=== PATIENT | female | born 2000 | race Caucasian/White ===

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

== ENCOUNTER → 2018-02-24 10:04 | Outpatient (CLI) | payer BC, SELFPAY ==
--- NOTE | 2018-02-24 10:18 | XR_ITS ---
XR hand LT min 3V HISTORY: ITS.REASON: LT HAND PAIN ORDERING PHYSICIAN: Foster Bautista MD PATIENT AGE: 18 years COMPARISON: None FINDINGS: No fracture or dislocation. No lytic or blastic change. There is normal mineralization.. The joint spaces are well-preserved. No significant degenerative/arthritic changes. No erosive changes evident.. IMPRESSION: Negative, no acute finding
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
--- NOTE | 2018-02-24 10:18 | XR_ITS ---
XR knee LT 3V HISTORY: ITS.REASON: LT KNEE PAIN ORDERING PHYSICIAN: Foster Bautista MD PATIENT AGE: 18 years COMPARISON: None FINDINGS: No fracture or dislocation. No lytic or blastic change. Normal mineralization. No significant arthritic changes evident. No other significant findings IMPRESSION: Negative Knee
== END ==
PROVIDERS: PCP Internal Medicine Adolescent Medicine; Visit Provider Internal Medicine Adolescent Medicine
DX: M79.642 Pain in left hand (principal); M25.512 Pain in left shoulder; M25.562 Pain in left knee
CPT/HCPCS: 73030; 73130; 73562

== ENCOUNTER → 2018-12-20 16:05 | Outpatient (CLI) | payer BC, SELFPAY ==
[2018-12-20 16:53] LABS: Basophils % 0.6 % (0.1-2.0); Eosinophils # 0.1 K/mm3 (0.0-0.4); Eosinophils % 0.9 % (0.1-12.0); Hematocrit 42.2 % (37.0-47.0); Lymphocytes % 33.2 % (10-50); Mean Corpuscular HGB Conc 33.1 g/dL (31.8-35.4); Mean Corpuscular Volume 87.6 fl (81-99); Mean Platelet Volume 6.9 fl (7.4-10.4); Monocytes # 0.4 K/mm3 (0.1-1.0); Monocytes % 5.8 % (1.7-9.3); Neutrophils # 3.6 K/mm3 (1.8-7.8); Neutrophils % 59.4 % (37.0-80.0); Platelet Count 353 K/mm3 (142-424); Red Blood Count 4.81 M/mm3 (4.20-5.40); Red Cell Distribution Width 12.6 % (11.5-17.5); White Blood Count 6.1 K/mm3 (4.5-13.0)
[2018-12-20 18:27] LABS: Amphetamine/Metha Screen,Urine Negative ng/mL (<1000); Barbiturates Screen,Urine Negative ng/mL (<200); Benzodiazepines Screen,Urine Negative ng/mL (<200); Cannabinoid Screen,Urine Negative ng/mL (<50); Cocaine Screen,Urine Negative ng/mL (<300); HCG,Quantitative 2114 mIU/mL; Methadone Screen,Urine Negative ng/mL (<300); Opiate Screen,Urine Negative ng/mL (<300); Phencyclidine Screen,Urine Negative ng/mL (<25); Thyroid Stimulating Hormone 1.57 uIU/ml (0.516-4.13)
[2018-12-22 07:15] LABS: HIV Screen 4th Generation wRfx Non Reactive (Non Reactive)
[2018-12-22 08:25] LABS: Hepatitis B Surface Antigen Negative (Negative); Rubella Antibodies, IgG 3.55 index (Immune >0.99)
[2018-12-22 14:09] LABS: Rapid Plasma Reagin Ab Titer Non Reactive (NonRea<1:1)
== END ==
PROVIDERS: Visit Provider Obstetrics & Gynecology
DX: Z34.90 Encounter for supervision of normal pregnancy, unspecified, unspecified trimester (principal)
CPT/HCPCS: 80305; 84443; 84702; 85025; 86592; 86703; 86762; 86850; 87340; G0432

== ENCOUNTER → 2018-12-23 12:17 | Outpatient (CLI) | payer BC, SELFPAY ==
[2018-12-23 14:52] LABS: HCG,Quantitative 354 mIU/mL
== END ==
PROVIDERS: Visit Provider Obstetrics & Gynecology
DX: Z34.90 Encounter for supervision of normal pregnancy, unspecified, unspecified trimester (principal)
CPT/HCPCS: 36415; 84702

== ENCOUNTER → 2019-01-03 13:10 | Outpatient (CLI) | payer BC, SELFPAY ==
[2019-01-03 14:51] LABS: HCG,Quantitative 69 mIU/mL
== END ==
PROVIDERS: Visit Provider Obstetrics & Gynecology
DX: O20.0 Threatened abortion (principal)
CPT/HCPCS: 36415; 84702; 86850

== ENCOUNTER → 2019-03-31 10:35 | Outpatient (CLI) | payer OTHER, SELFPAY ==
[2019-03-31 10:38] LABS: Microscopic, Urine URINE MICROSCOPIC (MICROSCOPIC)
[2019-03-31 11:06] LABS: Basophils % 0.4 % (0.1-2.0); Eosinophils # 0.1 K/mm3 (0.0-0.4); Eosinophils % 0.9 % (0.1-12.0); Hematocrit 45.2 % (37.0-47.0); Lymphocytes % 22.7 % (10-50); Mean Corpuscular HGB Conc 30.9 g/dL (31.8-35.4); Mean Corpuscular Hemoglobin 28.3 pg (27.0-31.2); Mean Corpuscular Volume 91.6 fl (81-99); Mean Platelet Volume 7.4 fl (7.4-10.4); Monocytes # 0.4 K/mm3 (0.1-1.0); Monocytes % 4.5 % (1.7-9.3); Neutrophils # 6.3 K/mm3 (1.8-7.8); Neutrophils % 71.4 % (37.0-80.0); Platelet Count 333 K/mm3 (142-424); Red Blood Count 4.93 M/mm3 (4.20-5.40); Red Cell Distribution Width 13.9 % (11.5-17.5); White Blood Count 8.9 K/mm3 (4.8-10.8)
[2019-03-31 12:07] LABS: Alanine Aminotransferase 19 U/L (12-78); Albumin Level 3.9 gm/dL (3.4-5.0); Albumin/Globulin Ratio 1.2 (1.1-1.8); Alkaline Phosphatase 105 U/L (46-116); Anion Gap 16.2 mEq/L (5-15); Aspartate Amino Transferase 10 U/L (15-37); Bilirubin,Total 0.4 mg/dL (0.2-1.0); Blood Urea Nitrogen 13 mg/dL (7-18); Calcium 9.7 mg/dL (8.5-10.1); Carbon Dioxide 24 mmol/L (21.0-32.0); Chloride 106 mmol/L (98-107); Estimated Glomerular Filt Rate 106 ml/min (>60); GFR (African American) 128 ML/MIN (>60); Globulin 3.3 gm/dl (1.3-3.2); Glucose 96 mg/dL (74-106); Potassium 4.2 mmoL/L (3.5-5.1); Sodium 142 mmol/L (136-145); Total Protein,Serum 7.2 gm/dL (6.4-8.2)
[2019-03-31 13:18] LABS: Appearance,Urine CLEAR (Clear); Bilirubin,Urine Negative (Negative); Blood, Urine Negative (Negative); Color,Urine YELLOW (Yellow); Glucose,Urine (UA) Negative (Negative); Ketones,Urine Negative (Negative); Leukocyte Esterase,Urine Negative (Negative); Nitrate,Urine Negative (Negative); Protein,Urine Negative (Negative); Specific Gravity, Urine 1.025 (1.005-1.030); Urobilinogen,Urine 0.2 EU/dl (0.2)
[2019-03-31 13:23] LABS: Bacteria,Urine Trace /lpf; Mucus,Urine Trace /lpf
[2019-04-01 09:41] LABS: HCG Qualitative, Serum Negative (Negative)
== END ==
PROVIDERS: Visit Provider Obstetrics & Gynecology
DX: Z01.818 Encounter for other preprocedural examination (principal); N87.9 Dysplasia of cervix uteri, unspecified
CPT/HCPCS: 36415; 80053; 81001; 84702; 84703; 85025

== ENCOUNTER → 2019-08-04 10:34 | Outpatient (CLI) | payer OTHER, SELFPAY ==
--- NOTE | 2019-08-04 10:39 | XR_ITS ---
PROCEDURE: XR CHEST 2V CLINICAL HISTORY: COUGH,SOB COMPARISON: No exams were available for comparison FINDINGS: The cardiomediastinal silhouette and pulmonary vascularity are within normal limits. The lungs are clear without infiltrates, suspicious nodules, or pleural effusions. There is evidence of old granulomatous disease IMPRESSION: No acute findings. Dictated by: Rob Balderas MD 08/04/2019 15:43 Electronically signed by Rob Balderas MD in [place] 08/04/2019 15:43
== END ==
PROVIDERS: PCP Nurse Practitioner Family; Visit Provider Nurse Practitioner Family
DX: R05 Cough (principal); R06.02 Shortness of breath
CPT/HCPCS: 71046

== ENCOUNTER 2019-12-13 08:00 | Outpatient (RCR) | payer BC, SELFPAY ==
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
== END 2019-12-13 08:05 | disposition home or self-care (01) ==
LOC: PT 08:00
PROVIDERS: Visit Provider Internal Medicine Adolescent Medicine
DX: M79.18 Myalgia, other site (principal)
CPT/HCPCS: 97010; 97014; 97035; 97110; 97140; 97163; G0283

== ENCOUNTER 2020-03-30 13:00 | Outpatient (RCR) | payer BC, SELFPAY ==
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
--- NOTE | 2020-03-20 10:44 | HMH.RHREAS ---
Rehab Reassessment Rehab OP Re-assessment Start: 03/20/20 09:42 Freq: Status: Active Protocol: Document 03/20/20 09:42 ALLEGRA (Rec: 03/20/20 09:49 ALLEGRA [id number]) Electronically Signed By Jose Francisco Moore, PT 03/20/20 09:42 Rehab Re-assessment Subjective Subjective Patient reports 65% improvement since start of care. Objective Objective Notes AROM: WNL MMT WNL Pain 6/10 current; 8/10 at worst Neuro: WNL Special tests - Assessment Progress Assessment Slower Than Expected Assessment Notes Patient continues to experience significant lumbar spine and lower thoracic spine pain. Main concern is L lumbar and SI joint pain. Special tests - for pelvic malalignment. Pt reports slightly decreased intensity of symptoms. No change in frequency or duration. Functional limitations persist with all household, work related and recreational activities. Patient goals met None Goals Not Met All Revised Goals NA Plan Plan Continue with POC. Frequency of Therapy 2x/week Duration of therapy 4 weeks Time and Billing Re-Eval Time 15 Re-Eval Billing Units 1 PHYSICIAN CERTIFICATION: I certify the specified therapy services for Tracey Summers are required, authorized, and reviewed every 30 days.
== END 2020-03-30 13:05 | disposition home or self-care (01) ==
LOC: PT 13:00
PROVIDERS: Visit Provider Internal Medicine Adolescent Medicine
DX: M46.1 Sacroiliitis, not elsewhere classified (principal); M79.18 Myalgia, other site
CPT/HCPCS: 20560; 20561; 97010; 97014; 97033; 97035; 97110; 97140; 97163; 97164; G0283

== ENCOUNTER → 2020-04-05 08:41 | Outpatient (CLI) | payer BC, SELFPAY ==
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
== END ==
PROVIDERS: PCP Internal Medicine Adolescent Medicine; Visit Provider Internal Medicine Adolescent Medicine
DX: M54.16 Radiculopathy, lumbar region (principal)
CPT/HCPCS: 72148; 76376

== ENCOUNTER → 2020-08-06 09:00 | Outpatient (POV) | payer BC, SELFPAY ==
[2020-08-06 09:12] VITALS: BP 120/61; PULSE 74; RESP 18; TEMP 36.8; O2SAT 98; BMI 18.5
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
== END ==
PROVIDERS: PCP Internal Medicine Adolescent Medicine; Visit Provider Clinical Nurse Specialist Family Health
DX: M51.16 Intervertebral disc disorders with radiculopathy, lumbar region (principal); M54.2 Cervicalgia
CPT/HCPCS: 99202

== ENCOUNTER 2020-08-31 09:34 | Day surgery (SDC) | payer BC, SELFPAY ==
[2020-08-31 09:55] VITALS: BP 121/63; PULSE 61; RESP 19; TEMP 36.8; O2SAT 98; BMI 23.1
[2020-08-31 11:05] VITALS: BP 120/74; PULSE 84; RESP 18
[2020-08-31 11:09] VITALS: BP 128/78; PULSE 87; RESP 18; O2SAT 98
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
[2020-08-31 11:20] VITALS: BP 117/66; PULSE 55; RESP 20; O2SAT 98
== END 2020-08-31 11:20 | disposition home or self-care (01) ==
LOC: SC.PAINP 09:36
PROVIDERS: PCP Internal Medicine Adolescent Medicine; Visit Provider Anesthesiology
DX: M51.16 Intervertebral disc disorders with radiculopathy, lumbar region (principal); Z82.49 Family history of ischemic heart disease and other diseases of the circulatory system; J45.909 Unspecified asthma, uncomplicated; F41.9 Anxiety disorder, unspecified; Z88.8 Allergy status to other drugs, medicaments and biological substances; Z72.0 Tobacco use
CPT/HCPCS: 62323; J1040; Q9966

== ENCOUNTER → 2020-09-24 10:21 | Outpatient (POV) | payer BC, SELFPAY ==
[2020-09-24 10:41] VITALS: BP 140/74; PULSE 85; RESP 18; O2SAT 98; BMI 23.1
--- NOTE | 2020-09-24 10:55 | P.CONS_ITS ---
[facility] Pain Management SOAP Note Subjective:: Patient is a pleasant 20-year-old white female who presents today for follow-up after a lumbar steroid injection. Patient states that her pain is worse rating it a 5 out of 10 today. She says most of her pain is in her right upper back and shoulder. Patient has palpable trigger points along this area. She is completed physical therapy and dry needling in the past. She has gone to chiropractor in the past. She has tried multiple muscle relaxers in the past. Patient and I had a discussion about moving forward. We will start her on some baclofen and also I recommended massage therapy. She may be a candidate for trigger point injections. ROS General: no recent weight change, no fever, no sleep disturbances Respiratory: no cough, no shortness of air, no recurring pulmonary infections Cardiovascular/Peripheral Vascular: No chest pain, No palpitations, no edema, no shortness of breath. Gastrointestinal: no new onset incontinence, normal bowel movements reported Genitourinary: no new onset incontinence Musculoskeletal: Back pain, myofascial pain Psychiatric: normal mood/ affect Neurological: [denies new onset weakness in extremities], [denies new onset balance issues] Objective:: Physical Exam General: Alert and oriented x3, no acute distress, pleasant and cooperative, [on room air] Lungs: Resps E/U, Symmetrical chest expansion, Eyes: PERRL Musculoskeletal: Flexion and extension of thoracic and lumbar spine somewhat guarded secondary to pain, deep tendon reflexes normal, strength in upper and lower extremities [5/5], normal gait noted Neurological: speech clear, plant maintenance engineer equal, no gross sensory deficits Assessment:: Degenerative of disc disease lumbar spine lumbar radiculopathy, myofascial pain syndrome Plan:: We will start the patient on baclofen 10 twice daily. We will see the patient back in 2 weeks reassess her symptoms at that time if she does not get relief we will move forward with potential trigger point injections. I also encouraged her to look into massage therapy. Dr. Montanez has reviewed this note and agrees with this plan of care. This note was dictated using voice recognition software and may contain errors or omissions [facility] History I have reviewed the patient's past medical history: Yes Medical History: Denies:: Cancer, Diabetes Mellitus Type 1, Diabetes Mellitus Type 2, Internal Pacemaker, MRSA, Seizures *Have you ever received a pneumonia vaccine?: Yes *Have you received a flu vaccine this season?: Yes Other Medical History: Denies: Blood Transfusion Reaction Laterality Cases: Bilateral: Tonsillectomy Other Surgeries: Yes: Other (cone biopsy). No: Pacemaker Amputation: No Fractures: Yes (l arm) - *Social History Smoking Status: Current every day smoker Tobacco Type: cigarettes # Packs/Day (cigarettes): 1 Alcohol Intake: never Alcohol Intake Frequency:: other Substance Use Type: denies use *Occupational Status:: other Housing: house Household Members: spouse *Travel in the last 8 weeks: None Family Hx:: Unable to obtain
== END ==
PROVIDERS: PCP Internal Medicine Adolescent Medicine; Visit Provider Clinical Nurse Specialist Family Health
DX: M51.16 Intervertebral disc disorders with radiculopathy, lumbar region (principal); M79.18 Myalgia, other site
CPT/HCPCS: 99212; G0463

== ENCOUNTER → 2020-10-18 14:17 | Outpatient (POV) | payer BC, SELFPAY ==
[2020-10-18 14:42] VITALS: BP 122/89; PULSE 77; RESP 18; TEMP 36.8; O2SAT 99; BMI 24.6
--- NOTE | 2020-10-18 14:49 | P.CONS_ITS ---
[facility] Pain Management SOAP Note Subjective:: She is a pleasant 20-year-old white female presents today for follow-up. Patient had a lumbar epidural steroid injection which made her pain worse she rates it today 5 out of 10. Most of her pain is in her right upper back and shoulder. She has palpable trigger points along this area she has completed physical therapy, dry needling and chiropractic therapy. She is tried multiple muscle relaxers in the past she tried baclofen with no success. I do believe that potentially neurologist would benefit our treatment plan. At this time patient is having pain from her leg and her back. I believe she may benefit from a nerve conduction study. ROS General: no recent weight change, no fever, no sleep disturbances Respiratory: no cough, no shortness of air, no recurring pulmonary infections Cardiovascular/Peripheral Vascular: No chest pain, No palpitations, no edema, no shortness of breath. Gastrointestinal: no new onset incontinence, normal bowel movements reported Genitourinary: no new onset incontinence Musculoskeletal: Back pain, neck pain, arm pain, shoulder pain, myofascial pain Psychiatric: normal mood/ affect Neurological: [denies new onset weakness in extremities], [denies new onset balance issues] Objective:: Physical Exam General: Alert and oriented x3, no acute distress, pleasant and cooperative, [on room air] Lungs: Resps E/U, Symmetrical chest expansion, Eyes: PERRL Musculoskeletal: Flexion and extension of cervical and lumbar spine somewhat guarded secondary to pain, deep tendon reflexes normal, strength in upper and lower extremities [5/5], normal gait noted Neurological: speech clear, speeder machine operator equal, no gross sensory deficits Assessment:: Degenerative disc disease lumbar spine lumbar radiculopathy, myofascial pain syndrome Plan:: We will see the patient back after her appointment with neurology. I discussed finding a new chiropractor as well. All she has been instructed to call the office if she has any issues prior to her next appointment. Dr. Montanez has re viewed this note and agrees with this plan of care. This note was dictated using voice recognition software and may contain errors or omissions [facility] History I have reviewed the patient's past medical history: Yes Medical History: Denies:: Cancer, Diabetes Mellitus Type 1, Diabetes Mellitus Type 2, Internal Pacemaker, MRSA, Seizures *Have you ever received a pneumonia vaccine?: Yes *Have you received a flu vaccine this season?: Yes Other Medical History: Denies: Blood Transfusion Reaction Laterality Cases: Bilateral: Tonsillectomy Other Surgeries: Yes: Other (cone biopsy). No: Pacemaker Amputation: No Fractures: Yes (l arm) - *Social History Smoking Status: Current every day smoker Tobacco Type: cigarettes # Packs/Day (cigarettes): 1 Alcohol Intake: never Alcohol Intake Frequency:: other Substance Use Type: denies use *Occupational Status:: other Housing: house Household Members: spouse *Travel in the last 8 weeks: None Family Hx:: Unable to obtain
== END ==
PROVIDERS: Visit Provider Clinical Nurse Specialist Family Health
DX: M51.16 Intervertebral disc disorders with radiculopathy, lumbar region (principal); M79.18 Myalgia, other site; M25.511 Pain in right shoulder; M79.605 Pain in left leg
CPT/HCPCS: 99212; G0463

== ENCOUNTER → 2020-12-10 09:52 | Outpatient (POV) | payer OTHER, SELFPAY ==
[2020-12-10 10:11] VITALS: BP 122/72; PULSE 65; RESP 18; O2SAT 98; BMI 24.0
--- NOTE | 2020-12-10 11:23 | HMH.PAINSOAP ---
[facility] Pain Management SOAP Note Subjective:: Patient is a pleasant 20-year-old white female who presents today for follow-up. Patient had lumbar epidural steroid injection which made her pain worse. She rates her pain today 5 out of 10. Most of her pain is in her right upper back and shoulders she has palpable trigger points along this area she is completed physical therapy, dry needling, chiropractic therapy. She is tried muscle relaxers with no success she had a negative nerve conduction study. Patient I discussed Cymbalta as she would like to move forward with this. If she does not respond well to this we will move forward with a [facility] neurological consultation. ROS General: no recent weight change, no fever, no sleep disturbances Respiratory: no cough, no shortness of air, no recurring pulmonary infections Cardiovascular/Peripheral Vascular: No chest pain, No palpitations, no edema, no shortness of breath. Gastrointestinal: no new onset incontinence, normal bowel movements reported Genitourinary: no new onset incontinence Musculoskeletal: Back pain, neck pain, arm pain, shoulder pain, myofascial pain Psychiatric: normal mood/ affect Neurological: [denies new onset weakness in extremities], [denies new onset balance issues] Objective:: Physical Exam General: Alert and oriented x3, no acute distress, pleasant and cooperative, [on room air] Lungs: Resps E/U, Symmetrical chest expansion, Eyes: PERRL Musculoskeletal: Flexion and extension of lumbar and thoracic spine somewhat guarded secondary to pain, deep tendon reflexes normal, strength in upper and lower extremities [5/5], normal gait noted Neurological: speech clear, swiss machinist equal, no gross sensory deficits Assessment:: Degenerative disc disease lumbar spine, lumbar radiculopathy, myofascial pain Plan:: We will start the patient on Cymbalta 30 mg 1 p.o. daily if this is not beneficial we will send her to I will see her back in 1 month. for neurological consultation. Dr. Montanez has reviewed this note and agrees with this plan of care. This note was dictated using voice recognition software and may contain errors or omissions [facility] History I have reviewed the patient's past medical history: Yes Medical History: Denies:: Cancer, Diabetes Mellitus Type 1, Diabetes Mellitus Type 2, Internal Pacemaker, MRSA, Seizures *Have you ever received a pneumonia vaccine?: Yes *Have you received a flu vaccine this season?: Yes Other Medical History: Denies: Blood Transfusion Reaction Laterality Cases: Bilateral: Tonsillectomy Other Surgeries: Yes: Other (cone biopsy). No: Pacemaker Amputation: No Fractures: Yes (l arm) - *Social History Smoking Status: Current every day smoker Tobacco Type: cigarettes # Packs/Day (cigarettes): 1 Alcohol Intake: never Alcohol Intake Frequency:: other Substance Use Type: denies use *Occupational Status:: other Housing: house Household Members: spouse *Travel in the last 8 weeks: None Family Hx:: Unable to obtain
== END ==
PROVIDERS: PCP Physician Assistant; Visit Provider Clinical Nurse Specialist Family Health
DX: M51.16 Intervertebral disc disorders with radiculopathy, lumbar region (principal); M79.18 Myalgia, other site
CPT/HCPCS: 99212; G0463

== ENCOUNTER → 2021-01-07 08:57 | Outpatient (POV) | payer OTHER, SELFPAY ==
[2021-01-07 09:08] VITALS: BP 118/74; PULSE 74; RESP 18; TEMP 36.8; O2SAT 98; BMI 24.3
--- NOTE | 2021-01-07 09:12 | HMH.PAINSOAP ---
[facility] Pain Management SOAP Note Subjective:: Is a pleasant 20-year-old white female who presents today for follow-up. Patient had a lumbar epidural steroid injection which made her pain worse she rates her pain a 5 out of 10. Most of it is in her right upper back and shoulder. She does have trigger points she has completed physical therapy, dry needling, chiropractic therapy. She is also had a nerve conduction study. Patient has tried and failed medications including Cymbalta. Patient and I have discussed going to [facility] neurological facility for consultation. At this time I do not believe there is any further therapy that we can provide. Patient states she has a new symptom where she has a feeling of coldness come over her mid back. ROS General: no recent weight change, no fever, no sleep disturbances Respiratory: no cough, no shortness of air, no recurring pulmonary infections Cardiovascular/Peripheral Vascular: No chest pain, No palpitations, no edema, no shortness of breath. Gastrointestinal: no new onset incontinence, normal bowel movements reported Genitourinary: no new onset incontinence Musculoskeletal: Back pain Psychiatric: normal mood/ affect Neurological: [denies new onset weakness in extremities], [denies new onset balance issues] Objective:: Physical Exam General: Alert and oriented x3, no acute distress, pleasant and cooperative, [on room air] Lungs: Resps E/U, Symmetrical chest expansion, Eyes: PERRL Musculoskeletal: Flexion and extension of thoracic spine somewhat guarded secondary to pain, deep tendon reflexes normal, strength in upper and lower extremities [5/5], normal gait noted Neurological: speech clear, 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 We will follow up with her afterwards she has discontinued her Cymbalta use. Dr. Montanez has reviewed this note and agrees with this plan of care. This note was dictated using voice recognition software and may contain errors or omissions [facility] History I have reviewed the patient's past medical history: Yes Medical History: Denies:: Cancer, Diabetes Mellitus Type 1, Diabetes Mellitus Type 2, Internal Pacemaker, MRSA, Seizures *Have you ever received a pneumonia vaccine?: Yes *Have you received a flu vaccine this season?: Yes Other Medical History: Denies: Blood Transfusion Reaction Laterality Cases: Bilateral: Tonsillectomy Other Surgeries: Yes: Other (cone biopsy). No: Pacemaker Amputation: No Fractures: Yes (l arm) - *Social History Smoking Status: Current every day smoker Tobacco Type: cigarettes # Packs/Day (cigarettes): 1 Alcohol Intake: never Alcohol Intake Frequency:: other Substance Use Type: denies use *Occupational Status:: other Housing: house Household Members: spouse *Travel in the last 8 weeks: None Family Hx:: Unable to obtain
== END ==
PROVIDERS: Visit Provider Clinical Nurse Specialist Family Health
DX: M79.18 Myalgia, other site (principal); M51.16 Intervertebral disc disorders with radiculopathy, lumbar region
CPT/HCPCS: 99212; G0463

== ENCOUNTER → 2021-04-11 13:21 | Outpatient (CLI) | payer OTHER, SELFPAY ==
--- NOTE | 2021-04-11 13:21 | US_ITS ---
PROCEDURE: US TRANSVAGINAL CLINICAL INDICATION: pelvic pain COMPARISON: No exams were available for comparison FINDINGS: UTERUS: 9 cm x 5cmx 3cm with a combined endometrial thickness of 4.5mm LEFT OVARY: 8alg9unu6.3cm with a volume of 3.2ml. RIGHT OVARY: 2cmx 4fqv4ss with a volume of 2.9ml. The uterus demonstrates homogeneous echotexture without focal lesions. The endometrial echo complex is within normal limits. The ovaries demonstrate follicles bilaterally. Vascularity appears within normal limits. No free fluid is noted in the pelvic cul-de-sac. IMPRESSION: Unremarkable pelvic ultrasound Dictated by: Viviana Maurer 04/11/2021 15:18 Viviana Maurer in OV 04/11/2021 15:18
== END ==
PROVIDERS: PCP Internal Medicine Adolescent Medicine; Visit Provider Obstetrics & Gynecology
DX: R10.2 Pelvic and perineal pain (principal)
CPT/HCPCS: 76830

== ENCOUNTER 2021-09-29 12:45 | Emergency (ER) | payer OTHER, SELFPAY ==
[2021-09-29 13:05] VITALS: BP 110/61; PULSE 56; RESP 18; O2SAT 98; BMI 24.3
[2021-09-29 14:30] VITALS: BP 0/0; PULSE 0; RESP 0; TEMP -17.7; TEMP 0
== END 2021-09-29 14:35 | disposition left against medical advice (07) ==
LOC: UTC 13:08
PROVIDERS: Emergency Provider Nurse Practitioner Family; PCP Internal Medicine Adolescent Medicine
DX: Z53.21 Procedure and treatment not carried out due to patient leaving prior to being seen by health care provider (principal)

== ENCOUNTER 2021-09-30 02:10 | Emergency (ER) | payer OTHER, SELFPAY ==
[2021-09-30 02:11] VITALS: BP 113/63; PULSE 82; RESP 17; TEMP 36.5; O2SAT 100; BMI 24.3
--- NOTE | 2021-09-30 02:35 | CT_ITS ---
PROCEDURE INFORMATION: Exam: CT Cervical Spine Without Contrast Exam date and time: 09/30/2021 2:35 AM Age: 21 years old Clinical indication: Neck pain; Additional info: Neck pain, no trauma TECHNIQUE: Imaging protocol: Computed tomography images of the cervical spine without contrast. Radiation optimization: All CT scans at this facility use at least one of these dose optimization techniques: automated exposure control; mA and/or kV adjustment per patient size (includes targeted exams where dose is matched to clinical indication); or iterative reconstruction. COMPARISON: CR XR CERVICAL SPINE 2V 11/15/2019 2:53 PM FINDINGS: Vertebrae: No acute fracture. The dens is intact. Normal alignment. C2-C3: No disc herniation. No significant spinal canal stenosis. C3-C4: No disc herniation. No significant spinal canal stenosis. C4-C5: No disc herniation. No significant spinal canal stenosis. C5-C6: No disc herniation. No significant spinal canal stenosis. C6-C7: No disc herniation. No significant spinal canal stenosis. C7-T1: No disc herniation. No significant spinal canal stenosis. Soft tissues: Unremarkable. Lungs: Lung apices are normal. IMPRESSION: No evidence for significant traumatic injury of the cervical spine. There are no significant degenerative changes.
--- NOTE | 2021-09-30 02:40 | ECG_ITS ---
APPROVED REPORT Exam: Resting ECG HR:63 bpm ECG Measurements Heart Rate 63 AXES OH 152 P 77 QRSd 82 QRS 88 QT 380 T 45 QTc 388 Conclusion Normal sinus rhythm Biatrial enlargement Abnormal ECG Electronically signed by : Foster Bautista MD 10/03/2021 13:50:37
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
[2021-09-30 04:08] VITALS: BP 120/74; PULSE 79; RESP 16; TEMP 36.5; O2SAT 100
== END 2021-09-30 04:12 | disposition home or self-care (01) ==
PROVIDERS: Emergency Provider Emergency Medicine; PCP Internal Medicine Adolescent Medicine
DX: S16.1XXA Strain of muscle, fascia and tendon at neck level, initial encounter (principal); M54.12 Radiculopathy, cervical region
CPT/HCPCS: 72125; 93005; 96372; 99282

== ENCOUNTER 2021-10-04 10:00 | Outpatient (RCR) | payer OTHER, SELFPAY ==
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
--- NOTE | 2021-07-17 08:54 | HMH.RHREAS ---
Rehab Reassessment Rehab OP Re-assessment Start: 07/17/21 08:43 Freq: Status: Active Protocol: Document 07/17/21 08:49 VIDYA (Rec: 07/17/21 08:54 VIDYA [id number]) Electronically Signed By Leo Joy, PT 07/17/21 08:49 Rehab Re-assessment Subjective Subjective Pt reports improved overall mid and low back pain since I eval @4/10 on VAS w/activity, and feels ~25% better since starting skilled P.T. Objective Objective Notes AROM: L-SPINE FLX 0-90, EXT 0- 30, B SB 0-25 MMT: B HIP FLX 5/5, B HIP IR, ER 4-4+/5, B HIP ABD,ADD,EXT 4 -4+/5 TTP: B PIRI 1-2/4, B THORACIC AND LUMBAR PARA 1-2/4 Assessment Progress Assessment Slower Than Expected Assessment Notes IMPROVED AROM, STRENGTH, AND TTP Patient goals met STG'S 02/26 LTG'S 10/30 Goals Not Met STG'S 10/29, LTG'S 03/29 Plan Plan PT TO CONT. W/SKILLED P.T. TO MAKE FURTHER IMPROVEMENTS IN AROM, TTP, AND STRENGTH TO ALLOW FOR OPTIMAL FUNCTION Frequency of Therapy 1-2X/WK Duration of therapy 3-4WKS Time and Billing Re-Eval Time 15 Re-Eval Billing Units 1 PHYSICIAN CERTIFICATION: I certify the specified therapy services for Tracey Summers are required, authorized, and reviewed every 30 days.
--- NOTE | 2021-08-14 13:23 | HMH.RHREAS ---
Rehab Reassessment Rehab OP Re-assessment Start: 07/17/21 08:43 Freq: Status: Active Protocol: Document 08/14/21 13:09 [email or web address] (Rec: 08/14/21 13:23 VIDYA [id number]) Electronically Signed By Leo Joy, PT 08/14/21 13:09 Rehab Re-assessment Subjective Subjective Pt reports 0-1/10 LBP and mid- back pain this pm on VAS, and feels 40-50% better overall since. Objective Objective Notes AROM: L-SPINE FLX 0-90, EXT 0- 30, R SB 0-25, L SB 0-30 MMT: B HIP FLX 5/5, B HIP IR, ER 4+/5, B HIP ABD,ADD,EXT 4-4 +/5 TTP: B PIRI 1-2/4, B THORACIC AND LUMBAR PARA 1-2/4 Assessment Progress Assessment Progressing as Expected Assessment Notes IMPROVED ROM, STRENGTH Patient goals met STG'S 04/28 LTG'S 12/28 Goals Not Met LTG'S 01/27 Plan Plan PT TO CONT. W/SKILLED P.T. TO MAKE FURTHER IMPROVEMENTS IN AROM, TTP, AND STRENGTH TO ALLOW FOR OPTIMAL FUNCTION Frequency of Therapy 2-3X/WK Duration of therapy 2-4WKS Time and Billing Re-Eval Time 15 Re-Eval Billing Units 1 PHYSICIAN CERTIFICATION: I certify the specified therapy services for Tracey Summers are required, authorized, and reviewed every 30 days.
== END 2021-10-04 10:05 | disposition home or self-care (01) ==
LOC: PT 10:00
PROVIDERS: PCP Internal Medicine Adolescent Medicine; Visit Provider Nurse Practitioner Family
DX: M54.6 Pain in thoracic spine (principal); G89.29 Other chronic pain; M54.50 Low back pain, unspecified
CPT/HCPCS: 20561; 97010; 97012; 97014; 97035; 97110; 97140; 97163; 97164; G0283

== ENCOUNTER → 2021-11-13 09:11 | Outpatient (CLI) | payer OTHER, SELFPAY ==
[2021-11-13 10:18] LABS: HCG,Quantitative < 2 mIU/ml (0-5.42)
== END ==
PROVIDERS: Visit Provider Obstetrics & Gynecology
DX: Z34.90 Encounter for supervision of normal pregnancy, unspecified, unspecified trimester (principal)
CPT/HCPCS: 36415; 84702

== ENCOUNTER → 2021-12-17 16:43 | Outpatient (CLI) | payer OTHER, SELFPAY ==
--- NOTE | 2021-12-17 16:48 | MR_ITS ---
PROCEDURE INFORMATION: Exam: MR Thoracic Spine Without Contrast Exam date and time: 12/17/2021 5:01 PM Age: 21 years old Clinical indication: Pain in thoracic spine; Additional info: Thoracic neuralgia TECHNIQUE: Imaging protocol: Multiplanar magnetic resonance images of the thoracic spine without intravenous contrast. COMPARISON: CT CERVICAL SPINE WO CON 09/30/2021 2:46 AM FINDINGS: alignment is grossly normal. signal intensity within the bone marrow is normal. conus terminates at the mid aspect of L1. Soft tissues are unremarkable. No subluxation-no perched or jumped facets. The facets are without acute process. No marrow edema T1-T2: No significant spinal canal stenosis. T2-T3: No significant spinal canal stenosis. T3-T4: No significant spinal canal stenosis. T4-T5: No significant spinal canal stenosis. T5-T6: No significant spinal canal stenosis. T6-T7: No significant spinal canal stenosis. T7-T8: No significant spinal canal stenosis. T8-T9: No significant spinal canal stenosis. T9-T10: No significant spinal canal stenosis. T10-T11: No significant spinal canal stenosis. T11-T12: No significant spinal canal stenosis. . IMPRESSION: Unremarkable MRI thoracic spine
== END ==
PROVIDERS: PCP Internal Medicine Adolescent Medicine; Visit Provider Internal Medicine Adolescent Medicine
DX: M54.12 Radiculopathy, cervical region (principal); M79.2 Neuralgia and neuritis, unspecified
CPT/HCPCS: 72146

== ENCOUNTER 2021-12-20 13:00 | Outpatient (RCR) | payer OTHER, SELFPAY ==
--- NOTE | 2021-10-16 11:38 | HMH.PTOPEV ---
PT Outpatient Evaluation Rehab PT Outpatient Evaluation Start: 10/16/21 11:18 Freq: Status: Active Protocol: Document 10/16/21 11:18 VIDYA (Rec: 10/16/21 11:37 VIDYA [id number]) Electronically Signed By Leo Joy, PT 10/16/21 11:18 Outpatient Therapy Subjective History Subjective History Pt reports acute right sided neck 'pop' while doffing shirt on 09/29/21, followed by significant neck pain on . Pt reports right UE s/s from shoulder to hand in the days following the exacerbation, 'but that's not an issue now'. Pt reports this am intermittent neck pain, ' throbbing, especially after housework'. Chief Complaint Pain,Spasms,Stiff Symptom Type Ache,Throb,Dull Symptoms Relieved By Rest/Positioning,Heat,OTC Meds ,Prescription Meds Symptoms Aggravated By Physical Activity,Lifting Prior Functional Limitations None Current Functional Limitations Lifting,Housework Symptom Description Constant but Variable Level of pain today (0-10) 4 Pain scale - at its best (0-10) 0 Pain scale - at its worst (0-10) 4 Cervical Eval Palpation Cervical Muscles R Cervical Paraspinal,L Cervical Paraspinal,R Suboccipital,L Suboccipital,R CT Junction,L CT Junction,R Upper Trapezius,L Upper Trapezius Cervical/Thoracic Palpation Findings Tenderness,Trigger Point, Muscle Guarding Posture Head/C-Spine Posture Sitting Position Neutral Position Head/C-Spine Posture Standing Position Neutral Position Flexibility Deficits Upper Trapezius Muscle Length (R) Moderate Tightness Levaetor Scapulae Muscle Length (R) Mild Tightness Scalene Group Muscle Length (L) Mild Tightness Passive Joint Mobility Cervical PIVM WNL: R OA L OA R AA L AA R C2/3 L C2/3 R C3/4 L C3/4 R C4/5 L C4/5 R C5/6 L C5/6 R C6/7
--- NOTE | 2021-11-19 13:28 | HMH.RHREAS ---
Rehab Reassessment Rehab OP Re-assessment Start: 11/19/21 13:01 Freq: Status: Active Protocol: Document 11/19/21 13:06 VIDYA (Rec: 11/19/21 13:28 VIDYA [id number]) Electronically Signed By Leo Joy, PT 11/19/21 13:06 Rehab Re-assessment Subjective Subjective Pt reports 7-8/10 neck pain on VAS, 'good days and bad days. Seems like its worse after I do a little bit at home which is why I guess I'm hurting today.' Objective Objective Notes TTP: S.P.'S C4-7 3/4, THOMAS. UT MM 3/4, CERVICAL PARA (THOMAS.) 2 /4 MMT: THOMAS. DELTOID MM 4/5 W/ PAIN IN THOMAS. UT MM CROM: FLX 0-65, EXT 41, B SB 0 -45, B ROT 0-50 (MM GAURDING NOTED W/ALL DIRECTIONS) Assessment Progress Assessment Slower Than Expected Assessment Notes improved strength, regression in TTP and CROM Patient goals met STG'S 12/26 Goals Not Met STG'S (11/25, LTG'S 05/30 Plan Plan Pt to continue w/skilled P.T. to make further improvements in CROM, strength, and TTP to allow for optimal function Frequency of Therapy 1-2x/wk Duration of therapy 3-4wks Time and Billing Re-Eval Time 15 Re-Eval Billing Units 1 PHYSICIAN CERTIFICATION: I certify the specified therapy services for Tracey Summers are required, authorized, and reviewed every 30 days.
--- NOTE | 2021-12-18 13:53 | HMH.RHREAS ---
Rehab Reassessment Rehab OP Re-assessment Start: 11/19/21 13:01 Freq: Status: Active Protocol: Document 12/18/21 13:09 VIDYA (Rec: 12/18/21 13:50 VIDYA [id number]) Electronically Signed By Leo Joy, PT 12/18/21 13:09 Rehab Re-assessment Subjective Subjective Pt reports 3/10 neck pain on VAS this pm, however, still reports 'good days and bad days dependent on how much or what I do around the house'. Objective Objective Notes TTP: S.P.'S C4-7 3/4, THOMAS. UT MM 3/4, CERVICAL PARA (THOMAS.) 3 /4, SCALENE MM THOMAS. 3/4 MMT: THOMAS. DELTOID MM 4-/5 W/ PAIN IN THOMAS. UT MM CROM: FLX 0-71, EXT 0-46, B SB 0-50, B ROT 0-60 (MM GUARDING NOTED W/ALL DIRECTIONS) Assessment Progress Assessment Slower Than Expected Assessment Notes SLIGHT IMPROVEMENT IN CROM, TTP AND STRENGTH REGRESSED Patient goals met stg's 12/26 Goals Not Met STG'S 11/25, LTG'S 05/30 Plan Plan Pt to hold skilled P.T. d/t lack of objective progress, and has been advised to continue to seek approval for cervical MRI to better determine next course of treatment. Frequency of Therapy 1-2x/wk Duration of therapy 1 Time and Billing Re-Eval Time 15 Re-Eval Billing Units 1 PHYSICIAN CERTIFICATION: I certify the specified therapy services for Tracey Summers are required, authorized, and reviewed every 30 days.
== END 2021-12-20 13:05 | disposition home or self-care (01) ==
LOC: PT 13:00
PROVIDERS: PCP Internal Medicine Adolescent Medicine; Visit Provider Nurse Practitioner Family
DX: M54.2 Cervicalgia (principal)
CPT/HCPCS: 20560; 97010; 97014; 97035; 97110; 97140; 97163; 97164; G0283

== ENCOUNTER → 2022-01-07 10:58 | Outpatient (CLI) | payer OTHER, SELFPAY ==
--- NOTE | 2022-01-07 11:01 | MR_ITS ---
FINAL REPORT CLINICAL HISTORY: CERVICAL PAIN/NECK. BILATERAL NECK PAIN X2YRS. NO RECENT INJURY OR TRAUMA. FINDINGS: Multiplanar MR imaging of the cervical spine was performed without contrast. On the sagittal T2-weighted images, no significant disc degeneration. There is no evidence of fracture. The vertebral alignment is normal. The cervical spinal cord has an unremarkable appearance without evidence of mass, edema or syrinx. No significant canal stenosis is identified. The cervicomedullary junction is normal. C2-3: There is no significant canal stenosis or neural foraminal narrowing. C3-4: There is no significant canal stenosis or neural foraminal narrowing. C4-5: There is no significant canal stenosis or neural foraminal narrowing. C5-6: There is no significant canal stenosis or neural foraminal narrowing. C6-7: There is no significant canal stenosis or neural foraminal narrowing. C7-T1: There is no significant canal stenosis or neural foraminal narrowing. IMPRESSION: No significant central canal stenosis or neural foraminal narrowing. Reviewed, Interpreted and Dictated by Wilfrid Valdivia III, MD Transcribed by Yahir Elliott Authenticated by Wilfrid Valdivia III, MD on 01/07/2022 01:18:27 PM [facility]
== END ==
PROVIDERS: PCP Internal Medicine Adolescent Medicine; Visit Provider Nurse Practitioner Family
DX: M54.2 Cervicalgia (principal)
CPT/HCPCS: 72141; 76376

== ENCOUNTER → 2022-02-03 10:08 | Outpatient (POV) | payer OTHER, SELFPAY ==
[2022-02-03 11:15] VITALS: BP 130/72; PULSE 71; RESP 18; TEMP 36.4; O2SAT 98; BMI 28.8
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
== END ==
PROVIDERS: Visit Provider Student in an Organized Health Care Education/Training Program
DX: S16.1XXA Strain of muscle, fascia and tendon at neck level, initial encounter (principal); S39.012A Strain of muscle, fascia and tendon of lower back, initial encounter
CPT/HCPCS: 99202; G0463

== ENCOUNTER → 2022-07-28 08:11 | Outpatient (CLI) | payer OTHER, SELFPAY ==
--- NOTE | 2022-07-28 08:24 | US_ITS ---
FINAL REPORT CLINICAL HISTORY: RUQ ABDOMINAL PAIN FINDINGS: Sonographic images of the right upper quadrant were obtained. The pancreas is within normal limits.The liver has an unremarkable appearance. There is trace sludge is seen within the gallbladder. There is no evidence of biliary ductal dilatation.The common duct measures 3 mm. Limited images of the right kidney are unremarkable. IMPRESSION: Trace sludge in the gallbladder. Otherwise, unremarkable exam. Reviewed, Interpreted and Dictated by Nic Joseph MD Transcribed by Jaqueline Gray Authenticated and [facility]
== END ==
PROVIDERS: PCP Internal Medicine Adolescent Medicine; Visit Provider Internal Medicine Adolescent Medicine
DX: R10.11 Right upper quadrant pain (principal)
CPT/HCPCS: 76705

== ENCOUNTER 2023-11-23 14:19 | Outpatient (CLI) | payer OTHER, SELFPAY ==
[2023-11-25 10:22] LABS: HSV 2 IgG, Type Spec <0.91
== END 2023-11-23 23:59 ==
LOC: LAB 14:20
PROVIDERS: PCP Internal Medicine Adolescent Medicine; Visit Provider Nurse Practitioner Obstetrics & Gynecology
DX: Z72.51 High risk heterosexual behavior (principal)
CPT/HCPCS: 36415; 86695; 86790

== ENCOUNTER 2024-04-08 12:02 | Outpatient (CLI) | payer OTHER, SELFPAY ==
[2024-04-08 12:49] LABS: Basophils % 0.5 % (0.1-2.0); Eosinophils # 0.1 K/mm3 (0.0-0.4); Eosinophils % 1.9 % (0.1-12.0); Hematocrit 43.8 % (37.0-47.0); Hemoglobin 14.6 g/dL (12.2-16.2); Lymphocytes # 1.2 K/mm3 (0.7-4.5); Lymphocytes % 23.1 % (10-50); Mean Corpuscular HGB Conc 33.3 g/dL (31.8-35.4); Mean Corpuscular Hemoglobin 29.1 pg (27.0-31.2); Mean Corpuscular Volume 87.6 fl (81-99); Mean Platelet Volume 7.7 fl (7.4-10.4); Monocytes # 0.3 K/mm3 (0.1-1.0); Monocytes % 5.9 % (1.7-9.3); Neutrophils # 3.6 K/mm3 (1.8-7.8); Neutrophils % 68.7 % (37.0-80.0); Platelet Count 296 K/mm3 (142-424); Red Cell Distribution Width 13.8 % (11.5-17.5); White Blood Count 5.2 K/mm3 (4.8-10.8)
[2024-04-08 13:15] LABS: Chloride 107 mmol/L (98-107)
[2024-04-08 13:16] LABS: Potassium 4.3 mmoL/L (3.5-5.1); Sodium 140 mmol/L (136-145)
[2024-04-08 13:18] LABS: Alanine Aminotransferase 14 U/L (12-78); Alkaline Phosphatase 79 U/L (38-126); Anion Gap 12.3 mEq/L (5-15); Aspartate Amino Transferase 25 U/L (14-36); Bilirubin,Total 0.4 mg/dl (0.2-1.3); Blood Urea Nitrogen 17 mg/dl (7-17); Calcium 9.5 mg/dl (8.4-10.2); Carbon Dioxide 25 mmol/L (22.0-30.0); Estimated Glomerular Filt Rate 87 ml/min (>60); GFR (African American) 105 ML/MIN (>60); Glucose 93 mg/dl (74-100); Lipase 68 U/L (23-300)
[2024-04-08 13:19] LABS: Albumin Level 4.2 g/dl (3.5-5.0); Albumin/Globulin Ratio 1.4 (1.1-1.8); Globulin 2.9 g/dL (1.3-3.2); Total Protein,Serum 7.1 g/dl (6.3-8.2)
[2024-04-08 13:50] LABS: Thyroid Stimulating Hormone 0.13 uIU/mL (0.465-4.68)
[2024-04-08 15:11] LABS: Free T4 (Free Thyroxine) 0.97 ng/dl (0.78-2.19)
== END 2024-04-08 23:59 | disposition home or self-care (01) ==
LOC: LAB 12:03
PROVIDERS: PCP Internal Medicine Adolescent Medicine; Visit Provider Physician Assistant
DX: A08.4 Viral intestinal infection, unspecified (principal); R10.84 Generalized abdominal pain; R19.7 Diarrhea, unspecified
CPT/HCPCS: 36415; 80050; 80053; 83690; 84439; 84443; 85025

== ENCOUNTER 2024-05-17 15:53 | Outpatient (CLI) | payer OTHER, SELFPAY ==
[2024-05-25 08:31] LABS: Immunoglobulin E, Total 10 IU/mL (6-495)
[2024-05-27 12:25] LABS: Miscellaneous Test SCANNED IMAGE
== END 2024-05-17 23:59 | disposition home or self-care (01) ==
LOC: LAB 15:55
PROVIDERS: Nurse Practitioner; PCP Nurse Practitioner Family; Visit Provider Nurse Practitioner Family
DX: J30.9 Allergic rhinitis, unspecified (principal)
CPT/HCPCS: 36415; 82785

== ENCOUNTER 2024-09-19 15:55 | Outpatient (RCR) | payer OTHER, SELFPAY ==
--- NOTE | 2024-09-20 12:20 | HMH.PTOPEV ---
PT Outpatient Evaluation Rehab PT Outpatient Evaluation Start: 09/19/24 15:58 Freq: Status: Active Protocol: Document 09/19/24 15:58 TERESASU (Rec: 09/19/24 17:31 MARLEN [email or web address]) E-signed By Gayathri Diaz, PT Outpatient Therapy Subjective History Subjective History Pt is a 24 y/o female who reports onset of low back 1 month ago after picking up a kid at work. Pt reports she felt a pop with pain. Pt reports she experienced severe pain will all movements that improved after 2 weeks. Pt reports she then got sick involving a lot of coughing which re-exacerbated pain although not as severe. Pt reports current symptoms of central low back pain R>L. Pt reports pain is aggravated by prolonged sitting, standing, lifting and twisting. Pt reports intermittent R anterolateral hip pain to the knee as well that she describes as a deep ache/throb . Pt denies numbness/tingling or b/b dysfunction. Pt denies having imaging of her low back . Pt denies further comorbidities to report. Pt reports she would like to return to her previous activity level involving weight lifting at the gym 4-5x /week. 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 Chief Complaint Pain,Stiff Symptom Type Ache,Throb,Dull Symptoms Relieved By Rest/Positioning Symptoms Aggravated By Sitting,Standing,Bending/ Stooping,Physical Activity, Twisting,Walking,Lifting Current Functional Limitations Lifting,Driving,Standing, Sitting,Recreation Activity, Walking,Bending/Stooping Symptom Description Intermittent Level of pain today (0-10) 6 Pain scale - at its best (0-10) 0 Pain scale - at its worst (0-10) 9 Lumbopelvic Eval Palapation tenderness bilateral lumbar spinal tenderness Yes: L3-L5, S1 paraspinal tenderness Yes Lumbar/Sacral Palpation Findings Tenderness Lumbar/Sacral Palpation Overall Comment 2/4 TTP Accessory Movement L-spine Vertebrae Accessory Movements Central P/A [place] that Elicit Symptoms L3 bilateral L4 bilateral L5 bilateral S1 bilateral Range of Motion Lumbar Spine Active Flexion Range of 85 Motion (degrees) Lumbar Spine Active Extension Range of 15 Motion (degrees) Left Lumbar Spine Lateral Flexion Active 10 Range of Motion (degrees) Right Lumbar Spine Lateral Flexion 10 Active Range of Motion (degrees) Manual Muscle Test Bilateral Knee Extension Strength Grade 5 Normal Knee Flexion Strength Grade 5 Normal Hip Flexion Strength Grade 5 Normal Hip Abduction Strength Grade 5 Normal Hip Adduction Strength Grade 4 Good Hip Extension Strength Grade 4 Good Extensor Hallucis Longus Strength Grade 5 Normal Ankle Dorsiflexion Strength Grade 5 Normal DTR Rt Patellar 2+ Lt Patellar 2+ Rt Gastroc/Soleus 2+ Lt Gastroc/Soleus 2+ Altered Sensation Bilateral LE Dermatome Level L5 Comment decreased light touch R compared to L Special Tests Hip Smooth (PENELOPE) Test Positive Left,Positive Right Unilateral Straight Leg Raise (Lasegue) Positive Right Test Sacroiliac Joint Compression Test Negative Left,Negative Right Sacroiliac Joint Distraction Test Negative Left,Negative Right Oswestry Index Section 1 Pain Intensity The pain comes and goes and is severe Section 2 Personal Care (Washing,Dresing) change my way of washing or dressing in order to avoid pain Section 3 Lifting lifting heavy weights off the floor, but I can manage if they are Section 4 Walking I cannot walk more than one mile wihtout increasing pain Section 5 Sitting I can sit in any chair for as long as I like Section 6 Standing I cannot stand more than 1 hour without increasing pain Section 7 Sleeping I get no pain in bed Section 8 Social Life My social life is normal and gives me no extra pain Section 9 Traveling I get extra pain while traveling, but it does not compel me to seek al Section 10 Changing Degreee of Pain My pain is neither getting better or worse Score and Risk Level Oswestry Sc 16 Oswestry Risk Level Moderate Disability Outpatient Therapy Assessment Impairments Problems/Impairmments Palpation Tenderness,Impaired Range of Motion,Impaired Strength,Impaired Walking, Impaired Standing,Impaired Sitting,Impaired Lifting, Impaired Squatting,Impaired Bending,Impaired Recreational Activities,Impaired Work Activities,Subjective C/O Pain ,Impaired Self Care/Self Management Prognosis Rehab Potential Good Clinical Impression Consistent with Diagnosis Yes Short Term Goals Number of Weeks 3 Restore Ability to Lift Objects to Waist Yes: demonstrate proper Level lifting mechanics to prevent reinjury Decrease Subjective C/O Pain Yes: Improve pain at worst to 7/10 to improve overall QOL Improve Self Care/Self Management Yes Patient to be Ind w/ HEP Yes Chcf Goals Number of Weeks 6 Decreased Palpation Tenderness Yes: 0-1/4 TTP of lumbar parapsinals & L3-L5, S1 Increase Range of Motion Yes: Improve lumbar AROM flex to 90, ext to 20, LF to 15 Increase Strength Yes: Improve hip/core strength to 4+-5/5 grossly to assist with function Restore Ability to Lift Objects to Waist Yes: 20-30lbs with proper Level mechanics to assist with occupation Return to Recreational Activities Yes Improve Oswestry Score Yes: Improve score to 11 to improve overall QOL Decrease Subjective C/O Pain Yes: Improve pain at worst to 5/10 to improve overall QOL Outpatient Therapy Plan of Care Treatment Plan May Include Therapeutic Exercise Including Home Yes Exercise Program Manual Therapy Techniques Yes Neuromuscular Re-education Yes Therapeutic Activities to Return to Yes Previous Functional/Work Level ADL/Self Care Education Yes Mechanical Traction Yes Dry Needling Yes Thermal Modalities Yes Electrical Stimulation Yes Ultrasound/Phonophoresis Yes Iontophoresis Yes Massage Yes Eval/Re-Eval Yes Frequency Times per week 2 Duration Number of Weeks 4-6 Addendums This patient is a candidate for social No or vocational rehab? Patient/Guardian verbally acknowledges Yes understanding of treatment program and consents to further treatment? Patient/Guardian verbally acknowledges Yes understanding of diagnosis, prognosis and goals for treatment? Eval Complexity PT Charges 92425 - Low Complexity Shoulder/Elbow Eval Shoulder Objective Measurements Elbow Objective Measurements PHYSICIAN CERTIFICATION: I certify the specified therapy services for Tracey Perez are required, authorized, and reviewed every 30 days.
== END 2024-09-19 23:59 | disposition home or self-care (01) ==
LOC: PT 15:55
PROVIDERS: Visit Provider Internal Medicine Adolescent Medicine
DX: M54.50 Low back pain, unspecified (principal)
CPT/HCPCS: 97163

== ENCOUNTER 2024-09-29 09:09 | Outpatient (CLI) | payer OTHER, SELFPAY ==
--- NOTE | 2024-09-29 09:14 | US_ITS ---
FINAL REPORT TECHNIQUE: Ultrasound images of the abdomen were obtained. CLINICAL HISTORY: Generalized abdominal pain COMPARISON: None FINDINGS: The pancreas is within normal limits. The liver is unremarkable. The gallbladder is unremarkable. The common duct is normal. The right kidney measures 10.2 cm in length and is normal in echogenicity without hydronephrosis. The left kidney measures 12.3 cm in length and is normal in echogenicity without hydronephrosis. The spleen is unremarkable. The aorta is normal in caliber. The vena cava is unremarkable. IMPRESSION: Normal ultrasound abdomen. Reviewed, Interpreted and Dictated by Nic Joseph MD Transcribed by Reba Trinh Authenticated and [facility]
== END 2024-09-29 23:59 | disposition home or self-care (01) ==
PROVIDERS: PCP Nurse Practitioner Family; Visit Provider Internal Medicine Adolescent Medicine
DX: R10.84 Generalized abdominal pain (principal)
CPT/HCPCS: 76700

== ENCOUNTER 2024-10-20 16:00 | Outpatient (RCR) | payer OTHER, SELFPAY | END 2024-10-20 23:59 | disposition home or self-care (01) | LOC: PT 16:00 | PROVIDERS: Visit Provider Internal Medicine Adolescent Medicine | DX: M54.50 Low back pain, unspecified (principal) | CPT/HCPCS: 97014; 97110; G0283 ==

== ENCOUNTER 2024-11-17 16:00 | Outpatient (RCR) | payer OTHER, SELFPAY ==
--- NOTE | 2024-10-24 17:14 | HMH.RHREAS ---
Rehab Reassessment Rehab OP Re-assessment Start: 10/24/24 16:03 Freq: Status: Active Protocol: Document 10/24/24 16:39 MARLEN (Rec: 10/24/24 17:14 MARLEN [id number]) E-signed By Gayathri Diaz, PT Oswestry Index Section 1 Pain Intensity The pain comes and goes and is moderate Section 2 Personal Care (Washing,Dresing) my way of washing or dressing even though it causes some pain Section 3 Lifting I can lift heavy weights, but it gives me extra pain Section 4 Walking I have some pain when walking but it does not increase with distance Section 5 Sitting I can sit in my favorite chair for as long as I like Section 6 Standing I cannot stand more than 1 hour without increasing pain Section 7 Sleeping I get pain in bed, but it does not prevent me from sleeping well Section 8 Social Life My social life is normal but increases the degree of pain Section 9 Traveling I get extra pain while traveling, but it does not compel me to seek al Section 10 Changing Degreee of Pain My pain is neither getting better or worse Score and Risk Level Oswestry Sc 15 Oswestry Risk Level Moderate Disability Rehab Re-assessment Subjective Subjective Pt reports she feels 50% improved since starting PT. Pt reports she has had the flu causing her to cough a lot and exacerbate low back pain. Pt reports continued central low back pain aggravated by prolonged standing, bending and lifting rated 9/10 at worst on VAS. Pt also reports intermittent tingling of the R big toe noted with prolonged sitting. Pt denies b/b dysfunction. 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 Pt reports non- compliance with HEP due to having the flu. Objective Objective Notes Palpation: 2/4 TTP of L3-5 and lumbar paraspinal mm Lumbar AROM: 90, ext 25, LF 15 Hip/core strength: 4/5 Assessment Progress Assessment Slower Than Expected Assessment Notes Pt has attended 5 PT treatment sessions consisting of aerobic exercise, core/hip strengthening, LE stretching, and modalities with good tolerance. Pt reports regression in progress due to having the flu causing her to cough a lot and irritating low back pain. Pt demonstrated slight improvement in TORSTEN score and lumbar AROM this date compared to the initial evaluation. Pt continues to demonstrate TTP of L3-5 and lumbar paraspinals with report of pain with prolonged standing, bending and lifting. Overall, the pt would continue to benefit from skilled PT to further improve hip/core strength, motor control, lifting mechanics and functional activity tolerance to improve overall QOL. Patient goals met ST/ Goals Not Met p! at worst, lifting mechanics , HEP compliance Revised Goals n/a Plan Plan Continue initial POC Frequency of Therapy 2x/week Duration of therapy 4 more weeks Time and Billing Re-Eval Time 10 Re-Eval Billing Units 0 Charge for PT reassessment? No Charge for OT reassessment? No PHYSICIAN CERTIFICATION: I certify the specified therapy services for Tracey Perez are required, authorized, and reviewed every 30 days.
== END 2024-11-17 23:59 | disposition home or self-care (01) ==
LOC: PT 16:00
PROVIDERS: Visit Provider Internal Medicine Adolescent Medicine
DX: M54.50 Low back pain, unspecified (principal)
CPT/HCPCS: 97014; 97110; 97140; G0283

== ENCOUNTER 2024-11-23 15:57 | Outpatient (RCR) | payer OTHER, SELFPAY ==
--- NOTE | 2024-11-23 17:21 | HMH.RHREAS ---
Rehab Reassessment Rehab OP Re-assessment Start: 11/23/24 16:00 Freq: Status: Active Protocol: Document 11/23/24 16:01 [email or web address] (Rec: 11/23/24 17:21 MARLEN [id number]) E-signed By Gayathri Diaz, PT Oswestry Index Section 1 Pain Intensity The pain comes and goes and is severe Section 2 Personal Care (Washing,Dresing) my way of washing or dressing even though it causes some pain Section 3 Lifting I can lift heavy weights, but it gives me extra pain Section 4 Walking I have some pain when walking but it does not increase with distance Section 5 Sitting Pain prevents me from sitting for more than one hour Section 6 Standing I cannot stand more than 1 hour without increasing pain Section 7 Sleeping I get pain in bed, but it does not prevent me from sleeping well Section 8 Social Life My social life is normal but increases the degree of pain Section 9 Traveling I get extra pain while traveling, but it does not compel me to seek al Section 10 Changing Degreee of Pain My pain is neither getting better or worse Score and Risk Level Oswestry Sc 18 Oswestry Risk Level Moderate Disability Rehab Re-assessment Subjective Subjective Pt reports no change in symptoms since the previous reassessment. Pt reports continued central low back pain with new onset of intermittent radiating pain down the left anterolateral thigh to the knee and intermittent tingling of the L third digit. Pt reports pain at worst as 8/10 on VAS and reports only brief moments where pain is not present. 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 Pt reports compliance with HEP. Objective Objective Notes Palpation: 3/4 TTP of L3-5 and thoracolumbar paraspinal mm Lumbar AROM: 100 flex, ext 10, LF 10 (report of central low back pain with all planes) Hip/core strength: 4/5 Assessment Progress Assessment No Progress Assessment Notes Pt has attended 9 PT treatment sessions since her initial evaluation performed on . Pt reported no change in subjective report of pain over the past month and demonstrated regression in TORSTEN score, lumbar extension & lateral flexion AROM, and tenderness to palpation of L3- S1 and paraspinal musculature. Pt continues to report severe pain with activities such as lying down, prolonged sitting, bending/lifting and work activities. Pt also reports new onset of LLE radicular symptoms. Due to continued severity of pain and lack of progress with conservative care thus far, will hold PT treatment at this time and refer pt back to MD for imaging and further treatment options. Patient goals met ST/ LT/7 Goals Not Met p! severity, TTP, lumbar AROM, LE/core strength, TORSTEN, work tolerance Revised Goals n/a Plan Plan Hold PT treatment. Refer back to MD for further treatment options. Recommend lumbar spine MRI due to continued severity of symptoms. Time and Billing Re-Eval Time 12 Re-Eval Billing Units 0 Charge for PT reassessment? No Charge for OT reassessment? No PHYSICIAN CERTIFICATION: I certify the specified therapy services for Tracey Perez are required, authorized, and reviewed every 30 days.
== END 2024-11-23 23:59 | disposition home or self-care (01) ==
LOC: PT 15:57
PROVIDERS: Visit Provider Internal Medicine Adolescent Medicine
DX: M54.50 Low back pain, unspecified (principal)
CPT/HCPCS: 97014; 97110; 97140; G0283

== ENCOUNTER 2025-01-20 15:53 | Outpatient (CLI) | payer OTHER, SELFPAY ==
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
--- NOTE | 2025-01-20 16:00 | US_ITS ---
PROCEDURE: US TRANSVAGINAL CLINICAL INDICATION: pelvic pain COMPARISON: US US TRANSVAGINAL from 04/11/2021 FINDINGS: Transvaginal and transabdominal sonographic images of the pelvis were obtained. UTERUS: 8.9cm x 5.0cmx 3.7 cm anteverted and anteflexed with a combined endometrial thickness of 2.9mm. There is a small 0.6 mm nabothian cyst in the cervix. There is a small amount of fluid above the fundus of the uterus. LEFT OVARY: 2bzq4tkm1.3cm with a volume of 3ml. RIGHT OVARY: 2cmx [id number] with a volume of 1.2ml. There are multiple small peripheral follicles. Both ovaries are seen and appear normal. Doppler flow to both ovaries are seen. There is no fluid in the cul-de-sac. IMPRESSION: 1. Anteverted and anteflexed uterus, upper limits of normal in size and normal in shape. The endometrium is thin measuring 2.9 mm. 2. Both ovaries are seen and appear normal. The right ovary contains multiple small follicles. 3. There is a small amount of fluid above the fundus of the uterus but no fluid in the cul-de-sac Dictated by: Jorden Browning MD 01/21/2025 09:17 Jorden Browning MD in [facility] 01/21/2025 09:17
== END 2025-01-20 23:59 | disposition home or self-care (01) ==
LOC: RAD 15:54
PROVIDERS: PCP Obstetrics & Gynecology; Visit Provider Obstetrics & Gynecology
DX: R10.2 Pelvic and perineal pain (principal)
CPT/HCPCS: 76830